=== PATIENT | female | born 1985 | race American Indian/Alaskan Native ===

== ENCOUNTER 2017-03-16 01:05 | Emergency (ER) | payer SELFPAY ==
[2017-03-16 04:58] VITALS: BP 136/95
[2017-03-16 06:08] LABS: Basophils % (Auto) 0.4 % (0.0-1.8); Eosinophils % (Auto) 2.3 % (0.0-4.3); Hematocrit 37.5 % (30.3-42.9); Hemoglobin 12.6 gm/dl (10.1-14.3); Mean Corpuscular HGB Conc 34 % (30-34); Mean Corpuscular Hemoglobin 31 pg (28-32); Mean Corpuscular Volume 91 fl (79-97); Platelet Count 165 K/mm3 (140-440); Red Blood Count 4.14 M/mm3 (3.65-5.03); Red Cell Distribution Width 14.2 % (13.2-15.2); White Blood Count 5.2 K/mm3 (4.5-11.0)
[2017-03-16 06:13] LABS: Alanine Aminotransferase 8 units/L (7-56); Albumin 3.8 g/dL (3.9-5); Albumin/Globulin Ratio 1.2 %; Alkaline Phosphatase 41 units/L (35-129); Anion Gap 18 mmol/L; Blood Urea Nitrogen 9 mg/dL (7-17); Calcium 9.1 mg/dL (8.4-10.2); Carbon Dioxide 21 mmol/L (22-30); Chloride 101.5 mmol/L (98-107); Glucose 105 mg/dL (65-100); Lipase 22 units/L (13-60); Potassium 3.8 mmol/L (3.6-5.0); Sodium 137 mmol/L (137-145)
== END 2017-03-16 04:29 | disposition left against medical advice (07) ==
LOC: ED 01:05
DX: R10.9 Unspecified abdominal pain (principal); Z53.21 Procedure and treatment not carried out due to patient leaving prior to being seen by health care provider
CPT/HCPCS: 36415; 80053; 83690; 85025

== ENCOUNTER 2021-09-15 12:31 | Emergency (ER) | payer SELFPAY ==
[2021-09-15] MEDS ORDERED: SODIUM CHLORIDE 0.9% 1000 ML 1,000 ML IV ONE (16:04)
[2021-09-15] MEDS ORDERED: ONDANSETRON 4 MG/2 ML INJ IV ONE (16:04)
[2021-09-15] MEDS ORDERED: FAMOTIDINE 20 MG/2 ML INJ IV ONE (16:05)
--- NOTE | 2021-09-15 16:08 | Emergency Department Report ---
ED General Adult HPI - General Chief complaint: Nausea/Vomiting/Diarrhea Stated complaint: NASUEA,LIGHT HEADED,VOMITTING Time Seen by Provider: 09/15/21 15:43 Source: patient Mode of arrival: Ambulatory Limitations: No Limitations - History of Present Illness Initial comments: 36-year-old -[place] female patient presents with complaints of acute worsening of epigastric pain, nausea vomiting, fatigue for the past week. Patient states her symptoms have been ongoing for about 3 years and that she has been evaluated multiple ERs for the symptoms. She states she has never followed up with her primary care doctor or GI specialist. She does admit to frequent heartburn. She denies any hematemesis/coffee-ground emesis, melena/hematochezia, fever/chills/sweats, or constipation/diarrhea. Past surgical history includes tubal ligation. She reports 2 episodes of vomiting this morning. Patient has not had COVID-19 testing and is not vaccinated against COVID-19. She also denies any loss of taste or smell, cough, chest pain, or shortness of breath - Related Data Previous Rx's Medication Instructions Recorded Last Taken Type Famotidine [Pepcid] 20 mg PO BID 10 Days #20 tablet 09/15/21 Unknown Rx Ondansetron [Zofran Odt] 4 mg PO Q8HR PRN #20 tab.rapdis 09/15/21 Unknown Rx Sucralfate [Carafate] 1 gm PO QID 10 Days #40 tablet 09/15/21 Unknown Rx Allergies Allergy/AdvReac Type Severity Reaction Status Date / Time No Known Allergies Allergy Verified 09/15/21 13:06 ED Review of Systems ROS: Stated complaint: NASUEA,LIGHT HEADED,VOMITTING Other details as noted in HPI Constitutional: malaise. denies: chills, diaphoresis, fever, weakness ENT: denies: throat pain Respiratory: denies: cough, shortness of breath Cardiovascular: denies: chest pain Gastrointestinal: abdominal pain, nausea, vomiting. denies: diarrhea, constipation, hematemesis, melena, hematochezia Genitourinary: denies: urgency, dysuria, frequency, hematuria, discharge, abnormal menses, dyspareunia Musculoskeletal: denies: back pain Skin: denies: rash, lesions, change in color Neurological: denies: headache Hematological/Lymphatic: denies: swollen glands ED Past Medical Hx - Surgical History Additional Surgical History: c sect - Social History Smoking Status: Never Smoker Substance Use Type: None - Medications Home Medications: Home Medications Medication Instructions Recorded Confirmed Last Taken Type Famotidine [Pepcid] 20 mg PO BID 10 Days #20 tablet 09/15/21 Unknown Rx Ondansetron [Zofran Odt] 4 mg PO Q8HR PRN #20 tab.rapdis 09/15/21 Unknown Rx Sucralfate [Carafate] 1 gm PO QID 10 Days #40 tablet 09/15/21 Unknown Rx ED Physical Exam - General Limitations: No Limitations General appearance: alert, in no apparent distress - Head Head exam: Present: atraumatic, normocephalic - Eye Eye exam: Present: normal appearance - ENT ENT exam: Present: normal exam - Neck Neck exam: Present: normal inspection - Respiratory Respiratory exam: Present: normal lung sounds bilaterally. Absent: respiratory distress - Cardiovascular Cardiovascular Exam: Present: regular rate, normal rhythm - GI/Abdominal GI/Abdominal exam: Present: soft, tenderness (Epigastric), normal bowel sounds. Absent: distended, guarding, rebound, rigid - Back Exam Back exam: Present: full ROM - Neurological Exam Neurological exam: Present: alert, oriented X3 - Psychiatric Psychiatric exam: Present: normal affect, normal mood - Skin Skin exam: Present: warm, dry, intact, normal color. Absent: rash ED Course Vital Signs 09/15/21 09/15/21 09/15/21 13:05 16:02 20:30 Temperature 98.3 F Pulse Rate 85 84 78 Respiratory 20 18 Rate Blood Pressure 166/110 Blood Pressure 135/111 156/102 [Left] O2 Sat by Pulse 100 100 100 Oximetry ED Medical Decision Making - Lab Data Result diagrams: 09/15/21 16:16 09/15/21 16:16 - Medical Decision Making 36-year-old -[place] female patient presents with complaints of acute worsening of epigastric pain, nausea vomiting, fatigue for the past week. Patient states her symptoms have been ongoing for about 3 years and that she has been evaluated multiple ERs for the symptoms. She states she has never followed up with her primary care doctor or GI specialist. She does admit to frequent heartburn. She denies any hematemesis/coffee-ground emesis, melena/hematochezia, fever/chills/sweats, or constipation/diarrhea. Past surgical history includes tubal ligation. She reports 2 episodes of vomiting this morning. Patient has not had COVID-19 testing and is not vaccinated against COVID-19. She also denies any loss of taste or smell, cough, chest pain, or shortness of breath No acute abnormalities noted on labs or ultrasound. Patient's pain is controlled and improved with meds given here in the ED. Blood pressure noted to be elevated, she denies history of hypertension. Recommend follow-up with primary care and GI specialist for further evaluation. Referrals were provided. Discussed in detail signs and symptoms that should prompt immediate return to the ED with patient who verbalizes understanding Critical care attestation.: If time is entered above; I have spent that time in minutes in the direct care of this critically ill patient, excluding procedure time. ED Disposition Clinical Impression: Chronic abdominal pain, Elevated blood pressure reading without diagnosis of hypertension Disposition: 01 HOME / SELF CARE / HOMELESS Is pt being admited?: No Condition: Stable Instructions: Abdominal Pain, Adult, Gastritis, Adult, Hypertension, Adult Prescriptions: Sucralfate [Carafate] 1 gm PO QID 10 Days #40 tablet Famotidine [Pepcid] 20 mg PO BID 10 Days #20 tablet Ondansetron [Zofran Odt] 4 mg PO Q8HR PRN #20 tab.rapdis PRN Reason: Nausea Referrals: [facility] [Provider Group] - 3-5 Days [facility] [Provider Group] - 3-5 Days [facility], [Primary Care Provider] - 3-5 Days Forms: Work/School Release Form(ED)
[2021-09-15 16:28] LABS: Basophils % (Auto) 0.3 % (0.0-1.8); Eosinophils # (Auto) 0.1 K/mm3 (0.0-0.4); Eosinophils % (Auto) 1.3 % (0.0-4.3); Hematocrit 41.3 % (30.3-42.9); Hemoglobin 13.4 gm/dl (10.1-14.3); Lymphocytes # (Auto) 1.9 K/mm3 (1.2-5.4); Lymphocytes % (Auto) 21.3 % (13.4-35.0); Mean Corpuscular HGB Conc 33 % (30-34); Mean Corpuscular Volume 90 fl (79-97); Monocytes # (Auto) 0.5 K/mm3 (0.0-0.8); Platelet Count 291 K/mm3 (140-440); Red Blood Count 4.59 M/mm3 (3.65-5.03); Red Cell Distribution Width 13.7 % (13.2-15.2)
[2021-09-15 16:48] LABS: Alanine Aminotransferase 8 units/L (7-56); Albumin 4.3 g/dL (3.9-5); Blood Urea Nitrogen 8 mg/dL (7-17); Calcium 9.9 mg/dL (8.4-10.2); Hemolysis Index 8
[2021-09-15 16:49] LABS: BUN/Creatinine Ratio 11
--- NOTE | 2021-09-15 17:48 | Ultrasound Report ---
LIMITED RUQ ABDOMINAL ULTRASOUND INDICATION / CLINICAL INFORMATION: pain. COMPARISON: No relevant prior imaging study available. FINDINGS: PANCREAS: Visualized portions of the pancreas are within normal limits. ABDOMINAL AORTA: No significant abnormality. IVC: No significant abnormality. LIVER: Liver measures 16.8 cm. The liver demonstrates a normal echogenicity and morphology. PORTAL VEIN: Normal hepatopedal blood flow in the main portal vein. GALLBLADDER: There is cholelithiasis. No gallbladder wall thickening. No pericholecystic fluid. Negat darwin sonographic Tyler sign. BILE DUCTS: No significant abnormality. Common bile duct measures 2 mm. RIGHT KIDNEY: No significant abnormality visualized. FREE FLUID: None. ADDITIONAL FINDINGS: None. IMPRESSION: Cholelithiasis without sonographic findings of cholecystitis. Signer Name: Valdez Benz MD Signed: 09/15/2021 5:43 PM Workstation Name: [id number]
[2021-09-15 19:32] LABS: Bilirubin,Urine NEG (Negative); Blood,Urine SM (Negative); Color,Urine Straw (Yellow); Protein,Urine <15 mg/dL mg/dL (Negative); Urobilinogen,Urine < 2.0 mg/dL (<2.0)
[2021-09-15 19:52] LABS: RBC,Urine < 1.0 /HPF (0.0-6.0); WBC,Urine < 1.0 /HPF (0.0-6.0)
[2021-09-15 20:32] VITALS: BP 156/102
== END 2021-09-15 20:32 | disposition home or self-care (01) ==
LOC: ED 12:31
DX: R11.2 Nausea with vomiting, unspecified (principal); R10.13 Epigastric pain; R53.83 Other fatigue
CPT/HCPCS: 36415; 76705; 80053; 81001; 83690; 84703; 85025; 96361; 96374; 96375; 99284; J3490